=== PATIENT | female | born 1980 | race Caucasian/White ===

== ENCOUNTER 2017-10-21 14:54 | Outpatient (CLI) | payer OTHER ==
[2017-10-21] MEDS ORDERED: Iopamidol 370 76% 100 ML VIAL ONE (16:31)
== END 2017-10-21 14:55 | disposition home or self-care (01) ==
LOC: BICCT 14:54
PROVIDERS: ATTEND Obstetrics & Gynecology
DX: R10.32 Left lower quadrant pain (principal); K57.92 Diverticulitis of intestine, part unspecified, without perforation or abscess without bleeding
CPT/HCPCS: 74160

== ENCOUNTER 2017-10-26 09:29 | Outpatient (CLI) | payer OTHER ==
[2017-10-26] MEDS ORDERED: Iopamidol 370 76% 100 ML VIAL ONE (13:58)
== END 2017-10-26 09:30 | disposition home or self-care (01) ==
LOC: BICCT 09:29
PROVIDERS: ATTEND Obstetrics & Gynecology
DX: R10.32 Left lower quadrant pain (principal); N83.201 Unspecified ovarian cyst, right side; K57.30 Diverticulosis of large intestine without perforation or abscess without bleeding; Z98.890 Other specified postprocedural states; Z90.721 Acquired absence of ovaries, unilateral; Z90.710 Acquired absence of both cervix and uterus
CPT/HCPCS: 72193

== ENCOUNTER 2017-11-11 19:39 | Inpatient (IN) | payer OTHER ==
[2017-11-11 20:12] LABS: #Basophils 0.1 thou/uL (0.0-0.2); #Eosinphils 0.1 thou/uL (0.0-0.7); #Lymphocytes 3.5 thou/uL (1.20-3.40); #Monocytes 0.5 thou/uL (0.11-0.59); #Neutrophils 5.6 thou/uL (1.40-6.50); %Basophils 1.2 % (0.0-1.0); %Eosinophils 1.3 % (0.0-10.0); %Lymphocytes 35.6 % (21.0-51.0); %Monocytes 5.1 % (0.0-10.0); %Neutrophils 56.8 % (42.0-75.0); Hemoglobin 13.2 g/dL (12.0-16.0); Mean Corpuscular Hemoglobin 28.2 pg (27.0-31.0); Mean Corpuscular Volume 88.2 fl (81.0-99.0); Platelet Count 393 thou/uL (130-400); RBC Distribution Width 13.2 % (11.5-14.5); Red Blood Cell (RBC) Count 4.68 mill/uL (4.20-5.40); White Blood Cell (WBC) Count 9.9 thou/uL (4.8-10.8)
[2017-11-11 20:26] LABS: ALT (SGPT) 18 U/L (8-55); AST (SGOT) 14 U/L (5-34); Albumin 4.1 g/dL (3.5-5.0); Alkaline Phosphatase 62 U/L (40-150); Anion Gap 13 mmol/L (10-20); BUN (Urea Nitrogen) 11 mg/dL (7.0-18.7); Bilirubin, Total 0.2 mg/dL (0.2-1.2); Calc. Creatinine Clearance 0 mL/min (70-130); Calcium 9.3 mg/dL (7.8-10.44); Carbon Dioxide 22 mmol/L (22-29); Chloride 107 mmol/L (98-107); Estimated GFR-MDRD 88; Globulin 3.6 g/dL (2.4-3.5); Glucose 85 mg/dL (70-105); Lipase 56 U/L (8-78); Protein, Total 7.7 g/dL (6.0-8.3); Sodium 138 mmol/L (136-145)
[2017-11-11] MEDS ORDERED: Fentanyl 100 MCG/2 ML VIAL ONE (21:07)
[2017-11-11] MEDS ORDERED: Ondansetron HCl/PF 4 MG/2 ML Vial ONE (21:21)
[2017-11-11 21:42] LABS: Bilirubin Negative (Negative); Blood, Urine Large (Negative); Clarity Hazy (Clear); Glucose, Urine (Dipstick) Negative (Negative); Leukocyte Small (Negative); Nitrite Negative (Negative); Protein, Urine (Dipstick) Negative (Neg-Trace); Specific Gravity, Urine 1.025 (1.005-1.030); Urobilinogen 0.2 mg/dL (0.2-1.0); pH, Urine 5.5 (5.0-9.0)
[2017-11-11 21:45] LABS: Bacteria/HPF 2+ HPF (None Seen)
[2017-11-11 21:46] LABS: Pregnancy Test - Urine (BHCG) Negative (Negative); Pregu Control Background? CLEAR/WHITE (CLR/WHITE); Pregu Control Bar Appear? YES (CONTROL BAR); Specific Gravity 1.025 (1.002-1.036)
--- NOTE | 2017-11-11 23:07 | CT ---
CT ABDOMEN AND PELVIS WITH IV CONTRAST: 11/11/17 Multiple axial tomograms obtained through the abdomen and pelvis with IV enhancement. HISTORY: Left lower quadrant abdominal pain. COMPARISON: Comparison made to recent CT abdomen from [facility] dated 10/21/17. Also compared to a prior CT from [facility] dated 05/21/13. FINDINGS: Lung bases are clear. Liver, spleen, pancreas are unremarkable. Adrenal glands and kidneys unremarkab le. No hydronephrosis. Small bowel loops appear unremarkable. Evaluation of the colon does show scattered diverticula. No CT evidence of diverticulitis identified. No evidence of fluid or abscess. No extraluminal gas identified. IMPRESSION: No acute abnormality. Specifically, no CT evidence of acute diverticulitis. POS: [facility]
[2017-11-12] MEDS ORDERED: Ketorolac Tromethamine 30 MG/ML VIAL ONE (00:13)
[2017-11-12] MEDS ORDERED: Ketorolac Tromethamine 30 MG/ML VIAL IVP PRN (02:44)
[2017-11-12] MEDS ORDERED: Acetaminophen 325 MG TAB PO PRN (02:44)
[2017-11-12] MEDS ORDERED: Ondansetron HCl/PF 4 MG/2 ML Vial IVP PRN ×2 (02:44→10:11)
[2017-11-12] MEDS ORDERED: Ondansetron ODT 4 MG TAB SL PRN (02:44)
[2017-11-12] MEDS: Fentanyl 100 MCG/2 ML VIAL SLOW IVP PRN ×6 (03:26→20:44)
[2017-11-12 05:07] VITALS: BMI 50.3
[2017-11-12] MEDS ORDERED: Promethazine HCl 25 MG/ML VIAL IM PRN (10:11)
[2017-11-12] MEDS ORDERED: Ondansetron ODT 4 MG TAB PO PRN (10:11)
[2017-11-12] MEDS ORDERED: Dextrose 50% Abboject 50 ML SYRINGE SLOW IVP PRN (10:11)
[2017-11-12] MEDS ORDERED: Dextrose 5% in Water 1,000 ML IV PRN (10:11)
[2017-11-12] MEDS ORDERED: hydrALAZINE 20 MG/ML VIAL SLOW IVP PRN (10:11)
[2017-11-12] MEDS ORDERED: Fentanyl 100 MCG/2 ML VIAL SLOW IVP PRN (10:11)
--- NOTE | 2017-11-12 10:43 | HP ---
CHIEF COMPLAINT: Severe left lower quadrant pain. HISTORY OF PRESENT ILLNESS: This is a 37-year-old female who presents with history of chronic pain i n her left lower quadrant more severe overnight. Previously had been seen at [facility] and a f ew years ago had hysterectomy and left oophorectomy for this pain. She did not have resolution of he r symptoms. Previous colonoscopy was 5-6 years ago at [facility]. She is not sure of the resul ts, but does not remember anything being abnormal. She has been told in the past that she may have h ad diverticulitis. She was treated with antibiotics with no improvement. She denies chronic constip ation, diarrhea. She denies dysuria. Denies fever, chills, no nausea or vomiting. No pain anywhere else in the abdomen. Her hysterectomy and oophorectomy were done laparoscopic. PAST MEDICAL HISTORY: Includes hypertension, history of panic attacks, chronic headaches. PAST SURGICAL HISTORY: As above. MEDICINES TAKEN DAILY: Include sertraline, Emerge, and Topamax. ALLERGIES: No known drug allergies. SOCIAL HISTORY: She is , nonsmoker, no alcohol or other drugs. REVIEW OF SYSTEMS: Ten system review of systems otherwise negative unless described above. PHYSICAL EXAMINATION: VITAL SIGNS: Blood pressure is 99/58, pulse is 63, respirations 16. She is afebrile. HEENT: Sclerae are anicteric. Oropharynx clear. NECK: No lymphadenopathy. CHEST: Clear. HEART: Regular rate and rhythm. ABDOMEN: Soft, no peritoneal signs. Tender left lower quadrant with localized guarding without rebo und. No abdominal or inguinal hernias. EXTREMITIES: No ischemia or edema to extremities. LABORATORY DATA AND X-RAY FINDINGS: White blood cell count is 9, hemoglobin 13. Sodium is 138, pota ssium 4.0, creatinine 0.74. Lactic acid normal. Lipase normal. LFTs normal. Urine has large blood , small leukocyte esterase, 7-10 RBCs, WBCs, but she does have lots of squamous cells and 2+ bacteria . CT scan overnight shows diverticulosis, no diverticulitis, no obvious intraabdominal pathology. ASSESSMENT: I suspect chronic diverticulosis or chronic diverticulitis. Certainly this is not gynec ologic in nature. I have discussed with Dr. Hannah. He will see her. Would be hesitant to perfo rm left colectomy without more significant changes on the CAT scan unless she has evidence of chronic diverticulitis, chronic tuberculosis and diverticulosis on the basis of a colonoscopy.
[2017-11-12] MEDS: D5 1/2 NS w/20 mEq KCL 1,000 ML IV SCH ×2 (12:47→20:33)
--- NOTE | 2017-11-12 13:57 | CON ---
DATE OF CONSULTATION: 11/12/2017 REFERRING PHYSICIAN: Dr. Lavell Saeed REASON FOR CONSULTATION: Abdominal pain. HISTORY OF PRESENT ILLNESS: Ms. Allison Graham is a very pleasant 37-year-old female with abdominal pain off and on over the last 1 month. The patient apparently has had some abdominal pain for the la st several years. The patient tells me she underwent a left oophorectomy and a hysterectomy in 2013 at [facility]. The patient also had 2 previous laparoscopies for abdominal pain and sunil th times she was found to have adhesions and was released. The patient had a colonoscopy I believe m ore than 5 years ago and was told to have diverticular disease. The patient's abdominal pain started approximately a month ago. The pain is persistent and continues. The pain is sharp, the pain is ov er the left lower quadrant. The patient has had no hematochezia, no diarrhea, no fever. Her bowel m ovements are fairly regular. She just has nausea, but no vomiting. The patient had abdominal CAT sc an on admission. The CAT scan showed no acute findings. She does have scattered colonic diverticulo sis. However, there is no evidence of diverticulitis seen. The CAT scan is basically very benign. The patient has history of nausea off and on, but no vomiting. There is no history of fever or chill s. Denies any dysuria, hematuria, or frequency of urination. Other than abdominal pain and nausea s he has no other relevant history. ALLERGIES: None. SOCIAL HISTORY: The patient is . She does not smoke or drink alcohol. MEDICAL ILLNESSES: 1. Depression. 2. Migraine headaches. SURGERIES: 1. . 2. Laparoscopy x2. 3. Colonoscopy. 4. Hysterectomy and left oophorectomy. 5. Cardiac catheterization by Dr. Chavarria a year ago and was told to be normal. MEDICATIONS: List reviewed. REVIEW OF SYSTEMS: FINANCIAL SECRETARY: No history of chronic headache, but does have a history of migraine, no history of dizziness, n o syncope, no seizure disorder. RESPIRATORY: No history of chronic cough, hemoptysis or dyspnea. CARDIOVASCULAR: No chest pain, no palpitations, no orthopnea or PND, had a negative cardiac catheter ization a year ago. GI: As in history of present illness. GENITOURINARY: Unremarkable. MUSCULOSKELETAL/ENDOCRINE/HEMATOLOGIC: Unremarkable. PHYSICAL EXAMINATION: GENERAL: The patient is obese, appears very comfortable. VITAL SIGNS: She is afebrile. Her pulse is 63, blood pressure is 100/60. HEENT: Conjunctivae clear. NECK: Supple. No adenitis or thyromegaly noted. CARDIOVASCULAR: First and second heart sounds normal. LUNGS: Clear to auscultation. ABDOMEN: Soft to palpate. Abdomen is nondistended. Abdomen is tender over the left lower quadrant. There is no rebound or guarding. No organomegaly or masses. Bowel sounds are normal. EXTREMITIES: Reveal no edema. LABORATORY DATA: CBC shows WBC 9900, hemoglobin 13.2, hematocrit 41.3, MCV 88.2, platelet count 397, 000, polymorphs 56, lymphocytes 35, monocytes 5. Serum chemistries; sodium 138, potassium 4, chlorid e 107, bicarbonate 22, BUN is 11, creatinine is 0.74, glucose 85, calcium 9.3, bilirubin 0.2, AST 14, ALT 18, alkaline phosphatase 62. The abdominal CAT scan shows basically diverticular disease, no di verticulitis seen. CLINICAL IMPRESSION: A 37-year-old female with abdominal pain which has been persistent over the las t one month. She is status post hysterectomy and left oophorectomy in 2013. She has had a laparosco py x2 for possible adhesions. Based on the history and physical and negative CAT scan, I believe she most likely has some adhesions. I did talk to Dr. Lavell Saeed and Dr. Saeed feels that she will have a colonoscopy to reveal any pathology there. If the colonoscopy is negative, then he will proc eed with a laparoscopy. This was conveyed to the patient and she is agreeable. I will prep the clive ent today for a colonoscopy and the colonoscopy will be done tomorrow.
--- NOTE | 2017-11-12 15:03 | PQF ---
DATE: 11-12-17 ATTN: DR SEAN MUNOZ Please exercise your independent, professional judgment in responding to the clarification form. Clinical indicators are provided on the bottom of this form for your review Please check appropriate box(s): [ ] UTI [ X] Contaminated urine specimen without UTI [ ] Other diagnosis [ ] Unable to determine In addition, please specify: Present on Admission (POA): [ ] Yes [ ] No [ ] Unable to determine For continuity of documentation, please document condition throughout progress notes and discharge summary. Thank You. CLINICAL INDICATORS - SIGNS / SYMPTOMS / LABS URINE: 11-11-17: URINE BLOOD: LARGE H UR LEUKOCYTE ESTERASE SMALL H URINE RBC 7-10 H URINE WBC 4-6 H UR SQUAMOUS EPITH CELLS 2+ H ER DOCUMENTATION: DOCTOR NOTES: DDX CONSIDERED PYELONEPHRITIS, URINE CULTURE SENT RISK FACTORS: ER DOCUMENTATION: IN WITH ABDOMINAL PAIN, URINE CULTURE SENT TREATMENT: ER IVF (This form is maintained as a part of the permanent medical record) 2014 [employer]. All Rights Reserved MARGARITA [email or web address] Office: [phone] DIEGO
[2017-11-12] MEDS ORDERED: GoLYTELY 4,000 ml Bottle PO SCH (18:45)
[2017-11-12] MEDS: Famotidine/PF 20 mg/2ml Vial SLOW IVP SCH (20:33)
[2017-11-13] MEDS: Fentanyl 100 MCG/2 ML VIAL SLOW IVP PRN ×2 (01:25→06:46)
[2017-11-13] MEDS: D5 1/2 NS w/20 mEq KCL 1,000 ML IV SCH ×3 (03:53→11:04)
[2017-11-13] MEDS: Famotidine/PF 20 mg/2ml Vial SLOW IVP SCH (10:53)
[2017-11-13 11:04] VITALS: BP 139/94; TEMP 98.5
[2017-11-13] MEDS ORDERED: Lidocaine 1% PF 5 ML VIAL ONE (14:37)
[2017-11-13] MEDS ORDERED: PROPOFOL 200 MG/20 ML VIAL ONE (14:37)
--- NOTE | 2017-11-13 16:02 | DIS ---
DISCHARGE DIAGNOSIS: Chronic left lower quadrant abdominal pain. PROCEDURES DURING ADMISSION: CT scan of abdomen and pelvis, total colonoscopy. HOSPITAL COURSE: The patient was admitted. She was given antibiotics, no improvement. CT was unrem arkable. Colonoscopy showed some scattered diverticula. No evidence of inflammation. She is about the same. She says her pain is no better, no worse. She would like to go home. She was discharged home in good condition on tramadol, which she already has. She will follow up with Dr. Saeed in 1- 2 weeks.
--- NOTE | 2017-11-13 17:04 | OP ---
DATE OF PROCEDURE: 11/13/2017 OPERATIVE PROCEDURE: Colonoscopy. PREOPERATIVE DIAGNOSIS: Abdominal pain, which has been persistent and chronic over the last several months. The patient is undergoing colonoscopy. POSTOPERATIVE DIAGNOSIS: Sigmoid diverticular disease. The mucosa appeared completely normal. No d iverticulitis or any colitis seen. PROCEDURE IN DETAIL: The patient was placed on her left lateral position and was given sedation by A nesthesia Department. A rectal exam was done before the scope was advanced into the rectum. No lesi ons were felt on rectal exam. A Pentax video colonoscope was introduced into the rectum and advanced all the way into the cecum. The mucosa appeared normal throughout the colon with normal vascular pa ttern. There was some liquid stool coating the mucosa, which was washed out. The appendiceal orific e, ileocecal valve and cecum, no pathology seen. The ascending colon, hepatic flexure, no pathology seen. The transverse colon, splenic flexure and descending colon, no pathology seen. The sigmoid co lizz showed scattered diverticulosis. Retroflexion of the scope in the rectum showed no lesions. OVERALL IMPRESSION: Negative colonoscopy and no pathology seen to explain abdominal pain. It is pos sible that some of her abdominal pain very well may be due to IBS or possibly postoperative adhesions from previous surgeries.
== END 2017-11-13 13:27 | disposition home or self-care (01) | DRG 392 ==
LOC: SCSER 19:39 → SURG B 11-12 02:35
PROVIDERS: ADMIT Surgery; ATTEND Surgery
PROC: 0DJD8ZZ Inspection of Lower Intestinal Tract, Via Natural or Artificial Opening Endoscopic (ICD-10-PCS; principal; 2017-11-13)
DX: K57.30 Diverticulosis of large intestine without perforation or abscess without bleeding (principal); F32.9 Major depressive disorder, single episode, unspecified
CPT/HCPCS: 74177; 80053; 81003; 81015; 81025; 83605; 83690; 85025; 96361; 96374; 96375; 96376; A4216; J1885; J2001; J2405; J2704; J3010; S0028

== ENCOUNTER 2017-11-17 10:04 | Day surgery (SDC) | payer OTHER ==
[2017-11-16 11:57] VITALS: BMI 48.6
[2017-11-17] MEDS ORDERED: CEFAZOLIN/Water 2 GM/20 ML SYRINGE ONE (11:16)
[2017-11-17] MEDS ORDERED: Midazolam HCl 2 mg/2 ml Vial ONE ×2 (11:16→11:42)
[2017-11-17] MEDS ORDERED: Fentanyl 100 MCG/2 ML VIAL ONE ×3 (11:34→14:15)
[2017-11-17] MEDS ORDERED: HYDROmorphone 0.5 MG/0.5 ML SYRINGE ONE (11:35)
[2017-11-17] MEDS ORDERED: Bupivacaine 0.25% HCL 30 ML VIAL ONE (11:38)
[2017-11-17] MEDS ORDERED: Lidocaine 2% w/Epinephrine 1:200K 20 ML VIAL ONE (11:38)
[2017-11-17] MEDS ORDERED: HYDROcodone/Acetaminophen 5/325 mg Tablet ONE (15:20)
[2017-11-17] MEDS ORDERED: Bupivacaine HCl 0.5%/Epinephrine 1:200,000/PF 30 ml Vial ONE (15:48)
[2017-11-17] MEDS ORDERED: Propofol 200 MG/20 ML VIAL ONE (16:32)
[2017-11-17] MEDS ORDERED: Dexamethasone 20 MG/5 ML VIAL ONE (16:32)
[2017-11-17] MEDS ORDERED: Glycopyrrolate 0.2 MG/ML 5 ML SYRINGE ONE (16:32)
[2017-11-17] MEDS ORDERED: Lidocaine 1% PF 5 ML VIAL ONE (16:32)
[2017-11-17] MEDS ORDERED: Ondansetron HCl/PF 4 MG/2 ML Vial ONE (16:32)
--- NOTE | 2017-11-18 11:43 | OP ---
DATE OF PROCEDURE: 11/17/2017 PREOPERATIVE DIAGNOSIS: Severe left lower quadrant pain, intractable, chronic. POSTOPERATIVE DIAGNOSIS: Severe left lower quadrant pain, intractable, chronic. PROCEDURES: Diagnostic laparoscopy, lysis of intraabdominal adhesions. SURGEON: Trevor Saeed M.D. ANESTHESIA: General. ESTIMATED BLOOD LOSS: Minimal. COMPLICATIONS: None. FINDINGS: There were a few adhesions in the left lower quadrant in the area of the sigmoid colon to the pelvic side wall. There are 1-2 adhesions from the small bowel in this area to the sigmoid colon . There is no significant evidence of chronic diverticulitis. There were no adhesions to the shaving machine operator ior abdominal wall in the area of the patient's severe pain. In the area of the patient's severe von n, there is evidence of previous scar likely from previous laparoscopic port site. There is no evide nce of endometriosis. TECHNIQUE: The patient was taken to the operating room and placed supine on the table. After genera l anesthetic was obtained, a Krueger was placed. The abdomen is prepped and draped in a sterile fashio n. Left subcostal 5 mm Optiview trocar was placed in the usual fashion and high-flow pneumoperitoneu m was obtained. A right lower quadrant 5 mm port and a 5 mm port are placed at the umbilicus. There were no significant adhesions to the small bowel. There were few adhesions from small bowel to sigm oid colon and a few adhesions from sigmoid colon to pelvic side wall. These were all taken down usin g cautery. Care was taken to avoid injury to the structures. In the area of patient's severe pain i n the left lower quadrant, there is evidence of previous abdominal port site. The peritoneum in this area was scored and taken down slightly to reveal no obvious chronic retained foreign body. There w as no significant scar tissue formation in the area of the left pelvis and adnexa. There was no evid ence of purulence or infection and inflammatory change in the abdomen. All port sites were incised u sing local anesthetic. All ports were removed under camera visualization and prep was let down. All incisions were irrigated and closed using 4-0 Monocryl and Dermabond. The patient is en route to [facility] in stable condition. All instrument counts, needle counts, lap counts are correct.
== END 2017-11-17 15:40 | disposition home or self-care (01) ==
LOC: SDC 10:04
PROVIDERS: ATTEND Surgery
PROC: 0DNW4ZZ Release Peritoneum, Percutaneous Endoscopic Approach (ICD-10-PCS; principal; 2017-11-17)
PROC: 0DNN4ZZ Release Sigmoid Colon, Percutaneous Endoscopic Approach (ICD-10-PCS; principal; 2017-11-17)
DX: R10.32 Left lower quadrant pain (principal); K66.0 Peritoneal adhesions (postprocedural) (postinfection); G43.909 Migraine, unspecified, not intractable, without status migrainosus; R03.0 Elevated blood-pressure reading, without diagnosis of hypertension; E78.2 Mixed hyperlipidemia; F41.0 Panic disorder [episodic paroxysmal anxiety]; E66.9 Obesity, unspecified; Z68.42 Body mass index [BMI] 45.0-49.9, adult; Z79.899 Other long term (current) drug therapy
CPT/HCPCS: 87086; 96374; J0131; J0670; J1100; J1170; J2001; J2250; J2405; J2704; J3010; S0020

== ENCOUNTER 2017-12-10 14:45 | Outpatient (CLI) | payer OTHER ==
--- NOTE | 2017-12-10 17:31 | MRI ---
MRI OF LUMBAR SPINE WITHOUT CONTRAST 12/10/17 HISTORY: Left inguinal pain. COMPARISON: None. TECHNIQUE: MRI of the lumbar spine is performed without contrast. Multisequential, multiplanar imaging is perfor med. FINDINGS: An appropriate T1 marrow signal intensity of the lumbar vertebrae. Lumbar spine vertebral height is m aintained. Bilateral pars defects at L5. No significant associated spondylolisthesis. No significant STIR hyperintensity to suggest vertebral edema or ligamentous injury. Symmetric signal intensity of the psoas muscles. Appropriate signal intensity of the visualized solid organs. The conus medullaris terminates at the superior aspect of L1. T12-L1: Minimal left paracentral disc bulge. No significant central canal stenosis. Neural foramina a re patent. L1-L2: Adequate disc hydration. No significant central canal stenosis. Neural foramina are patent. L2-L3: No significant central canal stenosis. Neural foramina are patent. L3-L4: No significant posterior disc abnormality. No significant central canal stenosis. Neural usha fausto are patent. L4-L5: No significant posterior disc abnormality. No significant central canal stenosis. Neural usha fausto are patent. L5-S1: Mild loss of disc space height. No significant central canal stenosis. Disc material encroache s upon the right neural foramen and buts the exiting right L5 nerve root. Left neural foramen is shell nt. IMPRESSION: Degenerative change in the L5 level as detailed above. There is mild narrowing of the right neural fo ramen due to disc material. Bilateral pars defects at L5 without associated significant spondylolisth esis. POS: [facility]
== END 2017-12-10 14:46 | disposition home or self-care (01) ==
LOC: TBSIIMAG 14:45
PROVIDERS: ATTEND Family Medicine
DX: R10.32 Left lower quadrant pain (principal); M47.896 Other spondylosis, lumbar region; M99.53 Intervertebral disc stenosis of neural canal of lumbar region
CPT/HCPCS: 72148

== ENCOUNTER 2018-02-22 11:48 | Day surgery (SDC) | payer OTHER ==
[2018-02-21 10:47] VITALS: BMI 48.6
[2018-02-22] MEDS ORDERED: Midazolam HCl 2 mg/2 ml Vial ONE (13:47)
[2018-02-22] MEDS ORDERED: Fentanyl 100 MCG/2 ML VIAL ONE (13:48)
== END 2018-02-22 14:20 | disposition home or self-care (01) ==
LOC: SDC/OP 11:48 → EDSTATUS 13:00 → SDC/OP 14:20
PROVIDERS: ATTEND Anesthesiology Pain Medicine
DX: M16.10 Unilateral primary osteoarthritis, unspecified hip (principal); M54.14 Radiculopathy, thoracic region; G43.709 Chronic migraine without aura, not intractable, without status migrainosus; F41.0 Panic disorder [episodic paroxysmal anxiety]; I10 Essential (primary) hypertension; E78.2 Mixed hyperlipidemia; E66.9 Obesity, unspecified; Z68.42 Body mass index [BMI] 45.0-49.9, adult
CPT/HCPCS: J2250; J3010

== ENCOUNTER 2018-04-04 16:22 | Emergency (ER) | payer OTHER ==
[2018-04-04] MEDS ORDERED: Ketorolac Tromethamine 30 MG/ML VIAL ONE (16:51)
[2018-04-04] MEDS ORDERED: Metoclopramide HCl 10 MG/2 ML VIAL ONE (16:51)
[2018-04-04] MEDS ORDERED: diphenhydrAMINE 50 MG/ML VIAL ONE (16:51)
== END 2018-04-04 17:45 | disposition home or self-care (01) ==
LOC: SCSER 16:22
DX: R51 Headache (principal); F41.9 Anxiety disorder, unspecified; F32.9 Major depressive disorder, single episode, unspecified; F17.210 Nicotine dependence, cigarettes, uncomplicated
CPT/HCPCS: 96361; 96374; 96375; J1200; J1885; J2765

== ENCOUNTER 2018-05-25 12:48 | Outpatient (CLI) | payer OTHER | END 2018-05-25 12:49 | disposition home or self-care (01) | LOC: DTY/OP 12:48 | PROVIDERS: ATTEND Surgery | DX: E66.01 Morbid (severe) obesity due to excess calories (principal) | CPT/HCPCS: 97802 ==

== ENCOUNTER 2018-06-22 13:57 | Outpatient (CLI) | payer OTHER ==
[2018-06-22 15:27] LABS: #Basophils 0.1 thou/uL (0.0-0.2); #Eosinphils 0.2 thou/uL (0.0-0.7); #Lymphocytes 3.2 thou/uL (1.20-3.40); #Monocytes 0.5 thou/uL (0.11-0.59); %Basophils 0.9 % (0.0-1.0); %Eosinophils 1.7 % (0.0-10.0); %Lymphocytes 36.1 % (21.0-51.0); %Monocytes 5.4 % (0.0-10.0); %Neutrophils 55.9 % (42.0-75.0); Hemoglobin 13.6 g/dL (12.0-16.0); Mean Corpuscular HGB CONC 32.3 g/dL (32.0-36.0); Mean Corpuscular Hemoglobin 29.5 pg (27.0-31.0); Mean Corpuscular Volume 91.2 fL (78.0-98.0); Mean Platelet Volume 7.9 fL (7.4-10.4); Platelet Count 460 thou/uL (130-400); RBC Distribution Width 12.9 % (11.5-14.5); White Blood Cell (WBC) Count 8.9 thou/uL (4.8-10.8)
[2018-06-22 15:38] LABS: Hemoglobin A1c 5.1 % (4.0-6.0)
[2018-06-22 15:50] LABS: ALT (SGPT) 26 U/L (8-55); AST (SGOT) 20 U/L (5-34); Albumin 4.3 g/dL (3.5-5.0); Alkaline Phosphatase 70 U/L (40-150); Anion Gap 13 mmol/L (10-20); BUN (Urea Nitrogen) 13 mg/dL (7.0-18.7); Bilirubin, Direct 0.1 mg/dL (0.1-0.3); Bilirubin, Total 0.3 mg/dL (0.2-1.2); Calc. Creatinine Clearance 0 mL/min (70-130); Calcium 9.7 mg/dL (7.8-10.44); Carbon Dioxide 24 mmol/L (22-29); Chloride 105 mmol/L (98-107); Estimated GFR-MDRD 82; Globulin 3.6 g/dL (2.4-3.5); Glucose 85 mg/dL (70-105); Protein, Total 7.9 g/dL (6.0-8.3); Sodium 138 mmol/L (136-145)
--- NOTE | 2018-06-22 16:17 | RAD ---
CHEST TWO VIEWS: 06/22/18 HISTORY: Preop. COMPARISON: 11/23/16 study. The heart size and mediastinum are within normal limits. The lungs appear clear of any infiltrative p rocess. There are arthritic changes of the spine. IMPRESSION: No active intrathoracic disease. POS: [facility]
--- NOTE | 2018-06-26 17:24 | EKG ---
Test Reason : Blood Pressure : / mmHG Vent. Rate : 067 BPM Atrial Rate : 067 BPM P-R Int : 190 ms QRS Dur : 096 ms QT Int : 386 ms P-R-T Axes : 035 007 -12 degrees QTc Int : 407 ms Normal sinus rhythm Nonspecific T wave abnormality Abnormal ECG When compared with ECG of 20-MAY-2017 14:32, Criteria for Inferior infarct are no longer Present Confirmed by KB PITTS (2) on 06/26/2018 5:24:11 PM Referred By: TAMMY Confirmed By:KB PITTS
== END 2018-06-22 13:58 | disposition home or self-care (01) ==
LOC: LABBT 13:57
PROVIDERS: ATTEND Surgery
DX: Z01.818 Encounter for other preprocedural examination (principal); E66.01 Morbid (severe) obesity due to excess calories
CPT/HCPCS: 71046; 80053; 80076; 83036; 85025; 93005; 93010

== ENCOUNTER 2018-06-29 12:27 | Inpatient (IN) | payer OTHER ==
[2018-06-29] MEDS ORDERED: CEFAZOLIN/Water 2 GM/20 ML SYRINGE ONE (12:57)
[2018-06-29] MEDS ORDERED: Heparin 5,000 UNITS/ML VIAL ONE (12:57)
[2018-06-29] MEDS ORDERED: Midazolam HCl 2 mg/2 ml Vial ONE (14:17)
[2018-06-29] MEDS ORDERED: Bupivacaine/Epinephrine 0.25% 30 ML VIAL ONE (14:37)
[2018-06-29] MEDS ORDERED: Fentanyl 100 MCG/2 ML VIAL ONE ×2 (14:39→17:02)
[2018-06-29] MEDS ORDERED: Ondansetron HCl/PF 4 MG/2 ML Vial ONE (15:46)
[2018-06-29] MEDS ORDERED: Lidocaine 1% PF 5 ML VIAL ONE (15:46)
[2018-06-29] MEDS ORDERED: Glycopyrrolate 0.2 MG/ML 5 ML SYRINGE ONE (15:46)
[2018-06-29] MEDS ORDERED: Ketorolac Tromethamine 30 MG/ML VIAL ONE (15:46)
[2018-06-29] MEDS ORDERED: Succinylcholine Chloride 20 MG/ML 10 ml SYRINGE FS ONE (15:46)
[2018-06-29] MEDS ORDERED: PROPOFOL 200 MG/20 ML VIAL ONE (15:46)
[2018-06-29] MEDS ORDERED: Promethazine HCl 25 MG/ML VIAL SLOW IVP PRN (16:46)
[2018-06-29] MEDS ORDERED: Meperidine HCl/PF 25 MG/ML VIAL SLOW IVP PRN (16:46)
[2018-06-29] MEDS ORDERED: Promethazine HCl 25 MG/ML VIAL IM PRN ×3 (16:46→19:32)
[2018-06-29] MEDS ORDERED: Ondansetron HCl/PF 4 MG/2 ML Vial IVP PRN ×3 (16:46→19:32)
[2018-06-29] MEDS ORDERED: Zolpidem Tartrate 5 MG TAB PO PRN (16:51)
[2018-06-29] MEDS ORDERED: diphenhydrAMINE 25 MG CAP PO PRN (16:51)
[2018-06-29] MEDS ORDERED: Naloxone HCl 0.4 mg/ml Vial IV PRN (16:51)
[2018-06-29] MEDS ORDERED: diphenhydrAMINE 50 MG/ML VIAL IVP PRN (16:51)
[2018-06-29] MEDS ORDERED: Ketorolac Tromethamine 30 MG/ML VIAL IVP PRN (16:51)
[2018-06-29] MEDS ORDERED: fentaNYL Citrate/PF 2,000 MCG in Sodium Chloride 0.9% 60 ML IV PRN (16:51)
[2018-06-29] MEDS ORDERED: diphenhydrAMINE 50 MG/ML VIAL IM PRN (16:51)
[2018-06-29] MEDS ORDERED: Communication Order-Pharmacy FS SCH (17:00)
[2018-06-29] MEDS ORDERED: Morphine 4 MG/ML VIAL ONE (17:02)
[2018-06-29] MEDS ORDERED: Promethazine HCl 25 MG/ML VIAL ONE (17:02)
[2018-06-29] MEDS ORDERED: D5 1/4 NS w/20 mEq KCL 1,000 ML ONE (18:03)
[2018-06-29] MEDS: D5 1/2 NS w/20 mEq KCL 1,000 ML IV SCH (19:10)
[2018-06-29] MEDS ORDERED: Hydrocodone-Acetamin 15 ML UDCUP PO PRN (19:32)
[2018-06-29] MEDS ORDERED: Dextrose 50% Abboject 50 ML SYRINGE SLOW IVP PRN (19:32)
[2018-06-29] MEDS ORDERED: hydrALAZINE 20 MG/ML VIAL SLOW IVP PRN (19:32)
[2018-06-29] MEDS ORDERED: Dextrose 5% in Water 1,000 ML IV PRN (19:32)
[2018-06-29] MEDS: Acetaminophen 1,000 MG in Premix Bag 1 BAG IVPB SCH (20:24)
[2018-06-29] MEDS ORDERED: Enoxaparin Sodium 40 MG/0.4 ML SYRINGE SC SCH (21:00)
[2018-06-29 23:16] VITALS: BMI 51.8
[2018-06-30] MEDS: Acetaminophen 1,000 MG in Premix Bag 1 BAG IVPB SCH ×3 (01:25→15:13)
[2018-06-30] MEDS: D5 1/2 NS w/20 mEq KCL 1,000 ML IV SCH ×2 (03:04→11:12)
[2018-06-30 06:04] LABS: #Lymphocytes 1.5 thou/uL (1.20-3.40); #Monocytes 0.6 thou/uL (0.11-0.59); #Neutrophils 10.8 thou/uL (1.40-6.50); %Basophils 0.1 % (0.0-1.0); %Eosinophils 0.1 % (0.0-10.0); %Lymphocytes 11.9 % (21.0-51.0); %Monocytes 4.5 % (0.0-10.0); %Neutrophils 83.4 % (42.0-75.0); Mean Corpuscular HGB CONC 31.5 g/dL (32.0-36.0); Mean Corpuscular Hemoglobin 29.1 pg (27.0-31.0); Mean Corpuscular Volume 92.4 fL (78.0-98.0); Mean Platelet Volume 7.9 fL (7.4-10.4); Platelet Count 359 thou/uL (130-400); RBC Distribution Width 12.9 % (11.5-14.5); Red Blood Cell (RBC) Count 4.13 mill/uL (4.20-5.40); White Blood Cell (WBC) Count 12.9 thou/uL (4.8-10.8)
[2018-06-30 06:19] LABS: Anion Gap 10 mmol/L (10-20); BUN (Urea Nitrogen) 5 mg/dL (7.0-18.7); Calc. Creatinine Clearance 279 mL/min (70-130); Calcium 8.5 mg/dL (7.8-10.44); Carbon Dioxide 24 mmol/L (22-29); Chloride 103 mmol/L (98-107); Estimated GFR-MDRD Greater than 90; Glucose 136 mg/dL (70-105); Potassium 3.9 mmol/L (3.5-5.1); Sodium 133 mmol/L (136-145)
[2018-06-30] MEDS ORDERED: Pantoprazole 40 MG VIAL IVP SCH (09:00)
[2018-06-30] MEDS ORDERED: Hydrocodone-Acetamin 15 ML UDCUP PO PRN (09:40)
[2018-06-30 12:26] VITALS: BP 160/92; TEMP 98.2
--- NOTE | 2018-06-30 21:35 | OP ---
DATE OF PROCEDURE: 06/29/2018 PREOPERATIVE DIAGNOSES: 1. Morbid obesity with body mass index of 51. 2. Hypertension. POSTOPERATIVE DIAGNOSES: 1. Morbid obesity with body mass index of 51. 2. Hypertension. 3. Paraesophageal hiatal hernia. PROCEDURES PERFORMED: 1. Laparoscopic sleeve gastrectomy. 2. Laparoscopic hiatal hernia repair without fundoplication or mesh. 4. EGD. SURGEON: Trevor Saeed M.D. ANESTHESIA: General. ESTIMATED BLOOD LOSS: Minimal. COMPLICATIONS: None. SPECIMEN: Stomach. FINDINGS: Small hiatal hernia. TECHNIQUE: The patient was taken to the operation room and place supine on the table. After general anesthetic was obtained, arms and legs were double strapped to bariatric table. The abdomen was pre pped and draped in a sterile fashion. Left subcostal 5 mm Optiview trocar was placed in the usual fa shion. High-flow pneumoperitoneum was obtained. Left and right abdominal 12-mm ports as well as a r ight subcostal 5 mm port were placed under direct visualization. A 5 mm incision was made at the xip hoid and Shannon was used to raise the liver off the GE junction. Short gastrics were taken down f rom mid body of stomach to the left shaun of the diaphragm. Left shaun, posterior fundus, angle of His were completely dissected. Short gastrics were taken down to a distance of 6 cm proximal to the pyl orus. A hiatal hernia was found. The gastrohepatic ligament was opened, exposing the right shaun of the diaphragm. A circumferential dissection of the esophagus was then performed bringing the fundus back into the abdominal cavity as was the GE junction. A 38 bougie was brought and its tip was left in the antrum of the stomach. Multiple loads of an Leyner stapling device were used to form the sle man. The first was a green load, fired up toward the incisura. Care was taken to avoid being too cl ose to incisura. Multiple loads were then fired up along the bougie, stomach was completely transect ed at the angle of His. The stomach was then removed from left abdominal incision. This fascial def ect was closed using GraNee needle 0 Vicryl tie. No bleeding on the staple line. One suture was use d to close the fascial defect. One suture was used to close the diaphragmatic defect posteriorly wit h the bougie in place. Bougie was then removed and an EGD scope was passed into the esophagus, stoma ch to the level of the duodenum without obstruction. No air leakage through the staple line or bleed ing. There was no stricture at the incisura or at the hiatal hernia repair. EGD scope was used to d ecompress the stomach, was pulled and removed. All port sites were infiltrated using local anestheti c. All ports were removed under camera visualization without bleeding. Pneumoperitoneum was let maría n. Vicryl was used to close the fascial defect from left abdominal incisions. All incisions were ir rigated and closed using 4-0 Monocryl and Dermabond. The patient was en route to recovery in stable condition. All instrument counts, needle counts, lap counts were correct.
--- NOTE | 2018-06-30 22:44 | DIS ---
DATE OF ADMISSION: 06/29/2018 DATE OF DISCHARGE: 06/30/2018 ADMIT DIAGNOSIS: Morbid obesity. DISCHARGE DIAGNOSES: Morbid obesity, hiatal hernia. PROCEDURES: Laparoscopic sleeve gastrectomy, laparoscopic hiatal hernia repair, EGD by Dr. Darlin gerard complication. CONDITION AT DISCHARGE: Improved. STAFF: Dr. Trevor Saeed. HOSPITAL COURSE: Patient had her procedure 06/29/2018 without complication. On the morning of 06/30, she is having mild nausea. She has been ambulatory. She has no significant complaints. She has vital signs are stable. Her abdomen is soft, appropriately tender and wounds are healing well. ASSESSMENT: Postoperative day #1, laparoscopic gastric sleeve. PLAN: Discharge home. Prescriptions for Lortab Elixir, Zofran dissolvable have already been sent ov er to her pharmacy.
== END 2018-06-30 16:35 | disposition home or self-care (01) | DRG 621 ==
LOC: EEVIPCON → SDC 12:27 → SURG B 16:23
PROVIDERS: ADMIT Surgery; ATTEND Surgery
PROC: 0DB64Z3 Excision of Stomach, Percutaneous Endoscopic Approach, Vertical (ICD-10-PCS; principal; 2018-06-29)
PROC: 0BQT4ZZ Repair Diaphragm, Percutaneous Endoscopic Approach (ICD-10-PCS; 2018-06-29)
DX: E66.01 Morbid (severe) obesity due to excess calories (principal); Z68.43 Body mass index [BMI] 50.0-59.9, adult; I10 Essential (primary) hypertension; K44.9 Diaphragmatic hernia without obstruction or gangrene; E78.2 Mixed hyperlipidemia
CPT/HCPCS: 36415; 80048; 85025; 88307; 88312; 94760; C9113; J0131; J1644; J1650; J1885; J2001; J2250; J2270; J2405; J2550; J2704; J3010; J7050

== ENCOUNTER → 2018-07-03 | Day surgery (SDC) | payer OTHER | LOC: SCSER/OP 08:23 | DX: Z29.8 Encounter for other specified prophylactic measures (principal); Z79.899 Other long term (current) drug therapy; Z88.8 Allergy status to other drugs, medicaments and biological substances ==

== ENCOUNTER 2018-09-01 22:59 | Emergency (ER) | payer OTHER ==
[2018-09-01] MEDS ORDERED: Lidocaine Viscous Sol 2% 15 ml UD Cup ONE (23:32)
[2018-09-02] MEDS ORDERED: Ketorolac Tromethamine 30 MG/ML VIAL ONE (00:11)
[2018-09-02 00:36] LABS: #Basophils 0.1 thou/uL (0.0-0.2); #Eosinphils 0.1 thou/uL (0.0-0.7); #Lymphocytes 3.5 thou/uL (1.20-3.40); #Monocytes 0.6 thou/uL (0.11-0.59); #Neutrophils 6.2 thou/uL (1.40-6.50); %Basophils 0.9 % (0.0-1.0); %Eosinophils 0.6 % (0.0-10.0); %Lymphocytes 33.8 % (21.0-51.0); %Monocytes 5.3 % (0.0-10.0); %Neutrophils 59.3 % (42.0-75.0); Hemoglobin 13.3 g/dL (12.0-16.0); Mean Corpuscular HGB CONC 32.3 g/dL (32.0-36.0); Mean Corpuscular Hemoglobin 27.7 pg (27.0-31.0); Mean Corpuscular Volume 85.8 fL (78.0-98.0); Mean Platelet Volume 8.9 fL (7.4-10.4); Platelet Count 313 thou/uL (130-400); RBC Distribution Width 13.5 % (11.5-14.5); Red Blood Cell (RBC) Count 4.81 mill/uL (4.20-5.40); White Blood Cell (WBC) Count 10.4 thou/uL (4.8-10.8)
[2018-09-02 00:42] LABS: BHCG - Serum Negative (NEGATIVE); Pregs Control Background? CLEAR/WHITE (CLR/WHITE); Pregs Control Bar Appear? YES (CONTROL BAR)
[2018-09-02 00:47] LABS: ALT (SGPT) 39 U/L (8-55); AST (SGOT) 22 U/L (5-34); Albumin 4.1 g/dL (3.5-5.0); Alkaline Phosphatase 66 U/L (40-150); Anion Gap 14 mmol/L (10-20); BUN (Urea Nitrogen) 8 mg/dL (7.0-18.7); Bilirubin, Total 0.2 mg/dL (0.2-1.2); Calc. Creatinine Clearance 0 mL/min (70-130); Calcium 9.5 mg/dL (7.8-10.44); Carbon Dioxide 23 mmol/L (22-29); Chloride 108 mmol/L (98-107); Estimated GFR-MDRD Greater than 90; Globulin 3.4 g/dL (2.4-3.5); Glucose 98 mg/dL (70-105); Potassium 3.8 mmol/L (3.5-5.1); Protein, Total 7.5 g/dL (6.0-8.3); Sodium 141 mmol/L (136-145)
[2018-09-02] MEDS ORDERED: Morphine 4 MG/ML VIAL ONE (01:31)
--- NOTE | 2018-09-02 08:17 | CT ---
PRELIMINARY REPORT/[facility]/EMERGENTY AFTER-HOURS PROCEDURE CT Neck With Intravenous Contrast EXAM DATE/TIME: 09/02/2018 12:35 AM CLINICAL HISTORY: 38 years old, female; Pain; Throat pain; Patient HX: PT has had sore throat for 8 days. She tested po sitive for strep 1 week ago. Pain and swelling. Difficulty swallowing TECHNIQUE: Axial computed tomography images of the neck with intravenous contrast. All CT scans at this facility use at least one of these dose optimization techniques: automated expos ure control; mA and/or kV adjustment per patient size (includes targeted exams where dose is matched to clinical indication); or iterative reconstruction. Coronal reformatted images were created and rev iewed. CONTRAST: 100 ml of ISOVUE 370 administered intravenously. COMPARISON: No relevant prior studies available. FINDINGS: Nasopharynx: Normal. Oropharynx: There is prominence of the left greater than right palatine tonsils. No drainable fluid c ollection. Hypopharynx: Normal. Larynx: Normal. Normal epiglottis. Trachea: Normal. Retropharyngeal space: Normal. Submandibular/Parotid glands: Normal. Glands are normal in size. Thyroid: Normal. No enlarged or calcified nodules. Bones/joints: Normal. No acute fracture. Soft tissues: See Oropharynx Finding. Vasculature: No acute findings. Lymph nodes: Normal. No lymphadenopathy. Lung apices: Normal as visualized. Dental: There is artifact arising from dental hardware. IMPRESSION: Prominence of the left greater than right palatine tonsils. No drainable fluid collection. Thank you for allowing us to participate in the care of your patient. Dictated and Authenticated by: Misha Razo MD 09/02/2018 1:19 AM Central Time ([place] & [place]) FINAL REPORT CT NECK WITH IV CONTRAST: I agree with the preliminary report given by Dr. Misha Razo of [employer]. POS: [facility]
== END 2018-09-02 02:10 | disposition home or self-care (01) ==
LOC: SCSER 22:59
DX: J02.9 Acute pharyngitis, unspecified (principal); I10 Essential (primary) hypertension; F32.9 Major depressive disorder, single episode, unspecified; F41.9 Anxiety disorder, unspecified; G43.909 Migraine, unspecified, not intractable, without status migrainosus; Z79.899 Other long term (current) drug therapy
CPT/HCPCS: 70491; 80053; 84703; 85025; 96361; 96374; 96375; J1885; J2270

== ENCOUNTER 2018-09-20 18:09 | Emergency (ER) | payer OTHER ==
[2018-09-20] MEDS ORDERED: Acetaminophen 500 MG TAB ONE (18:40)
[2018-09-20] MEDS ORDERED: methylPREDNISolone Sod Succ/PF 125 MG/2 ML VIAL ONE (18:49)
[2018-09-20] MEDS ORDERED: Ketorolac Tromethamine 30 MG/ML VIAL ONE (18:49)
[2018-09-20] MEDS ORDERED: Metoclopramide HCl 10 MG/2 ML VIAL ONE (18:50)
== END 2018-09-20 20:25 | disposition home or self-care (01) ==
LOC: SCSER 18:09
DX: R51 Headache (principal); F41.9 Anxiety disorder, unspecified; F32.9 Major depressive disorder, single episode, unspecified; Z79.899 Other long term (current) drug therapy
CPT/HCPCS: 96361; 96365; 96375; J1885; J2765; J2930

== ENCOUNTER 2018-09-29 21:16 | Emergency (ER) | payer OTHER ==
[2018-09-29] MEDS ORDERED: Promethazine HCl 25 MG/ML VIAL ONE (21:57)
[2018-09-29] MEDS ORDERED: Prochlorperazine 10 MG/2 ML VIAL ONE (21:57)
[2018-09-29] MEDS ORDERED: Ketorolac Tromethamine 30 MG/ML VIAL ONE (21:57)
== END 2018-09-29 23:42 | disposition home or self-care (01) ==
LOC: SCSER 21:16
DX: R51 Headache (principal); F41.9 Anxiety disorder, unspecified; F32.9 Major depressive disorder, single episode, unspecified
CPT/HCPCS: 96365; 96368; 96375; J0780; J1885; J2550

== ENCOUNTER 2018-10-17 07:47 | Emergency (ER) | payer OTHER ==
[2018-10-17] MEDS ORDERED: Ketorolac Tromethamine 30 MG/ML VIAL ONE (08:25)
[2018-10-17] MEDS ORDERED: Prochlorperazine 10 MG/2 ML VIAL ONE (08:25)
[2018-10-17] MEDS ORDERED: Promethazine HCl 25 MG/ML VIAL ONE (08:25)
== END 2018-10-17 09:13 | disposition home or self-care (01) ==
LOC: SCSER 07:47
DX: G43.909 Migraine, unspecified, not intractable, without status migrainosus (principal); F41.9 Anxiety disorder, unspecified; Z87.891 Personal history of nicotine dependence
CPT/HCPCS: 96365; 96368; 96375; J0780; J1885; J2550

== ENCOUNTER 2019-06-19 12:43 | Emergency (ER) | payer OTHER ==
--- NOTE | 2019-06-19 14:00 | CT ---
CT HEAD WITHOUT IV CONTRAST COMPARISON: 03/30/2015 HISTORY: Headache. Recent injury. TECHNIQUE: Axial CT imaging at 5 mm intervals from vertex through skull base without contrast FINDINGS: There is no evidence of an acute infarction, hemorrhage, mass effect, or midline shift. The ventricul ar system is normal in size, shape, and position. Visualized paranasal sinuses are clear. Osseous structures appear intact. There is been no interval change from prior study. IMPRESSION: 1. No acute intracranial abnormality demonstrated.
--- NOTE | 2019-06-19 14:07 | CT ---
CT cervical spine noncontrast HISTORY: Fall. Neck injury. FINDINGS: Vertebral body heights and alignment are maintained. Cervicothoracic junction is intact. No acute fracture or dislocation. Mild multilevel disc bulges. A small amount of perivascular fluid along the left anterolateral aspect of the aortic arch on the inferior most image is similar to the [address] exam of the neck. IMPRESSION: No acute osseous abnormalities are demonstrated.
== END 2019-06-19 14:19 | disposition home or self-care (01) ==
LOC: SCSER 12:43
DX: S16.1XXA Strain of muscle, fascia and tendon at neck level, initial encounter (principal); S00.83XA Contusion of other part of head, initial encounter; G43.909 Migraine, unspecified, not intractable, without status migrainosus; F41.9 Anxiety disorder, unspecified; Z87.891 Personal history of nicotine dependence; Z79.899 Other long term (current) drug therapy; W22.8XXA Striking against or struck by other objects, initial encounter
CPT/HCPCS: 70450; 72125

== ENCOUNTER 2019-08-07 | Emergency (ER) | payer MEDICAID ==
[2019-08-07] MEDS ORDERED: Ketorolac Tromethamine 30 MG/ML VIAL ONE (00:30)
[2019-08-07] MEDS ORDERED: Prochlorperazine 10 MG/2 ML VIAL ONE (00:30)
[2019-08-07] MEDS ORDERED: Promethazine HCl 25 MG/ML VIAL ONE (00:31)
== END 2019-08-07 01:39 | disposition home or self-care (01) ==
LOC: SCSER
DX: G43.909 Migraine, unspecified, not intractable, without status migrainosus (principal); F41.9 Anxiety disorder, unspecified; Z87.891 Personal history of nicotine dependence; Z79.899 Other long term (current) drug therapy
CPT/HCPCS: 96365; 96368; 96375; J0780; J1885; J2550

== ENCOUNTER 2019-08-27 18:07 | Emergency (ER) | payer MEDICAID ==
[2019-08-27 18:59] LABS: #Basophils 0.1 thou/uL (0.0-0.2); #Eosinphils 0.1 thou/uL (0.0-0.7); #Monocytes 0.5 thou/uL (0.11-0.59); #Neutrophils 4.5 thou/uL (1.40-6.50); %Eosinophils 1.6 % (0.0-10.0); %Lymphocytes 36.2 % (21.0-51.0); %Monocytes 6.2 % (0.0-10.0); Hemoglobin 14.5 g/dL (12.0-16.0); Mean Corpuscular HGB CONC 31.7 g/dL (32.0-36.0); Mean Corpuscular Hemoglobin 29.3 pg (27.0-31.0); Mean Corpuscular Volume 92.5 fL (78.0-98.0); Mean Platelet Volume 7.1 fL (7.4-10.4); Platelet Count 351 thou/uL (130-400); RBC Distribution Width 12.8 % (11.5-14.5); Red Blood Cell (RBC) Count 4.96 mill/uL (4.20-5.40); White Blood Cell (WBC) Count 8.2 thou/uL (4.8-10.8)
[2019-08-27] MEDS ORDERED: Dexamethasone 10 MG/ML VIAL ONE (18:59)
[2019-08-27 19:16] LABS: ALT (SGPT) 20 U/L (8-55); AST (SGOT) 14 U/L (5-34); Albumin 4.2 g/dL (3.5-5.0); Alkaline Phosphatase 68 U/L (40-110); Anion Gap 12 mmol/L (10-20); BUN (Urea Nitrogen) 11 mg/dL (7.0-18.7); Bilirubin, Total 0.3 mg/dL (0.2-1.2); Calc. Creatinine Clearance 0 mL/min (70-130); Calcium 9.5 mg/dL (7.8-10.44); Carbon Dioxide 27 mmol/L (22-29); Chloride 105 mmol/L (98-107); Estimated GFR-MDRD 87; Globulin 3.2 g/dL (2.4-3.5); Glucose 85 mg/dL (70-105); Potassium 3.9 mmol/L (3.5-5.1); Protein, Total 7.4 g/dL (6.0-8.3); Sodium 140 mmol/L (136-145)
[2019-08-27 19:21] LABS: BHCG - Serum Negative (NEGATIVE); Pregs Control Background? CLEAR/WHITE (CLR/WHITE); Pregs Control Bar Appear? YES (CONTROL BAR)
--- NOTE | 2019-08-27 19:29 | CT ---
CT Brain WO Con History: Headache Comparison: CT brain June 2019 Findings: No acute hemorrhage or infarct. No midline shift or mass effect. Ventricular size and extra -axial CSF spaces are normal. Calvarium is intact. Paraspinous sinuses and mastoids are clear. Impression: No acute intracranial abnormality.
[2019-08-27 19:33] LABS: Thyroid Stimulating Hormone 1.8368 uIU/mL (0.35-4.94)
[2019-08-27] MEDS ORDERED: Valproate Sodium 500 MG/5 ML VIAL ONE (19:56)
[2019-08-27] MEDS ORDERED: KETAMINE 100 MG/ML (5ML VIAL) ONE ×2 (21:08→22:07)
[2019-08-27] MEDS ORDERED: Bupivacaine 0.5% 10 ML VIAL ONE (21:54)
== END 2019-08-27 22:36 | disposition home or self-care (01) ==
LOC: SCSER 18:07
DX: G43.909 Migraine, unspecified, not intractable, without status migrainosus (principal); F41.9 Anxiety disorder, unspecified; Z87.891 Personal history of nicotine dependence; Z79.899 Other long term (current) drug therapy
CPT/HCPCS: 70450; 80053; 84443; 84484; 84703; 85025; 93005; 96361; 96365; 96366; 96367; 96375; J1100; J3490